=== PATIENT | male | born 1975 | race American Indian/Alaskan Native ===

== ENCOUNTER 2017-09-21 17:44 | Emergency (ER) | payer SELFPAY ==
[2017-09-21 18:11] VITALS: BP 132/90
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
--- NOTE | 2017-09-21 21:24 | XRay Report ---
FINAL REPORT EXAM: XR CLAVICLE LT HISTORY: pain s/p injury L shoulder TECHNIQUE: 2 views of left clavicle. PRIORS: Left shoulder radiographs of same date. FINDINGS: Oblique fracture of left distal clavicle, with some comminution and mild-moderate distraction again noted. AC joint maintained. Remainder of osseous and soft tissue structures grossly unremarkable. IMPRESSION: 1. Fracture left distal clavicle.
[2017-09-21] MEDS ORDERED: PERCOCET 5/325 PO ONE (22:31)
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
== END 2017-09-21 23:50 | disposition home or self-care (01) ==
LOC: ED 17:44
DX: S42.032A Displaced fracture of lateral end of left clavicle, initial encounter for closed fracture (principal); J45.909 Unspecified asthma, uncomplicated; V19.88XA Pedal cyclist (driver) (passenger) injured in other specified transport accidents, initial encounter; Y93.89 Activity, other specified; Y92.89 Other specified places as the place of occurrence of the external cause; Y99.8 Other external cause status
CPT/HCPCS: 99284